=== PATIENT | female | born 1975 ===

== ENCOUNTER 2017-02-09 16:56 | Inpatient (IN) | payer OTHER ==
[2017-02-09 18:46] LABS: BASO # 0.1 K/uL (0.0-0.2); BASO % 0.7 % (0.0-2.0); EOS % 0.4 % (0.0-4.0); HEMATOCRIT 17.7 % (34.0-47.0); LYMPH # 1.9 K/uL (1.0-4.3); LYMPH % 16.9 % (20.0-40.0); MEAN CELL VOLUME 60.3 fl (81.0-99.0); MEAN CORPUSCULAR HEMOGLOBIN 17.4 pg (27.0-31.0); MEAN CORPUSCULAR HGB CONC 28.8 g/dL (33.0-37.0); MEAN PLATELET VOLUME 8.6 fl (7.2-11.7); MONO # 0.6 K/uL (0.0-0.8); MONO % 5.4 % (0.0-10.0); NEUT # 8.4 K/uL (1.8-7.0); NEUT % 76.6 % (50.0-75.0); NRBC % 0.1 % (0.0-0.0); RED CELL DISTRIBUTION WIDTH 19.8 % (11.5-14.5)
--- NOTE | 2017-02-09 18:57 | ED PDOC ---
HPI: Female Pain Time Seen by Provider: 02/09/17 17:15 Chief Complaint (Nursing): Female Genitourinary Chief Complaint (Provider): Vaginal Bleeding History Per: Patient History/Exam Limitations: no limitations Current Symptoms Are (Timing): Still Present Additional Complaint(s): Ayleen Dover, a 41 year old female, presents to the ED for vaginal bleeding. The patient states she has been on her menses for 5 days using 5 pads per day. She also complains of feeling lightheaded. Denies abdominal pain. Past Medical History Reviewed: Historical Data, Nursing Documentation, Vital Signs Vital Signs: Last Vital Signs Temp 98.3 F 02/09/17 17:10 Pulse 72 02/09/17 17:10 Resp 18 02/09/17 17:10 BP 99/6 L 02/09/17 17:10 Pulse Ox 100 02/09/17 17:10 - Medical History PMH: No Chronic Diseases - Surgical History Surgical History: No Surg Hx - Family History Family History: States: Unknown Family Hx - Home Medications Home Medications: Ambulatory Orders Medication Instructions Recorded Ferrous Sulfate [Feosol] 325 mg PO TID #90 tab 02/10/17 - Allergies Allergies/Adverse Reactions: Allergies Allergy/AdvReac Type Severity Reaction Status Date / Time No Known Allergies Allergy Verified 02/09/17 17:09 Review of Systems Cardiovascular: Positive for: Light Headedness Gastrointestinal: Negative for: Abdominal Pain Genitourinary Female: Positive for: Vaginal Bleeding Physical Exam - Reviewed Nursing Documentation Reviewed: Yes Vital Signs Reviewed: Yes - Physical Exam Appears: Positive for: Non-toxic, No Acute Distress Head Exam: Positive for: ATRAUMATIC, NORMAL INSPECTION, NORMOCEPHALIC Skin: Positive for: Pallor Eye Exam: Positive for: Normal appearance, EOMI, PERRL ENT: Positive for: Normal ENT Inspection Neck: Positive for: Normal, Painless ROM, Supple Cardiovascular/Chest: Positive for: Regular Rate, Rhythm, Chest Non Tender. Negative for: Tachycardia Respiratory: Positive for: Normal Breath Sounds. Negative for: Wheezing, Respiratory Distress Gastrointestinal/Abdominal: Positive for: Normal Exam, Soft. Negative for: Tenderness, Guarding, Rebound Back: Positive for: Normal Inspection Extremity: Positive for: Normal ROM. Negative for: Deformity, Swelling Neurologic/Psych: Positive for: Alert, Oriented, Gait - Laboratory Results Result Diagrams: 02/10/17 07:00 02/10/17 07:00 - ECG O2 Sat by Pulse Oximetry: 100 (RA) Pulse Ox Interpretation: Normal Medical Decision Making Medical Decision Makin Initial Impression: 41 year old female presenting with vaginal bleeding Differentials: Anemia, Irregular vaginal bleeding Initial Plan: * ABO/RH Type * Type and Screen * Comp Metabolic Panel * Upreg * Udip * CBC * PTT * Prothrombin Time * Urinalysis * US Pelvis/Transvaginal * Reevaluation 1855 Pelvic exam performed and revealed small amounts of blood in the vault. Interactive Media Director Ashok. Spoke to Dr. Edmondson notified of consult. Scribe Attestation Documented by Gianna Costa acting as a scribe for Lacey Royal MD. Provider Attestation All medical record entries made by the Scribe were at my direction and personally dictated by me. I have reviewed the chart and agree that the record accurately reflects my personal performance of the history, physical exam, medical decision making, and the department course for this patient. I have also personally directed, reviewed, and agree with the discharge instructions and disposition. Disposition - Clinical Impression Clinical Impression: Symptomatic anemia, Menorrhagia - Patient ED Disposition Is Patient to be Admitted: Yes - Disposition Disposition Time: 19:00 Condition: STABLE - Pt Status Changed To: Hospital Disposition Of: Observation - POA Present On Arrival: None
[2017-02-09 18:58] LABS: ALB/GLOB RATIO 1.3 (1.0-2.1); ALKALINE PHOSPHATASE 72 U/L (38-126); ALT/SGPT 35 U/L (9-52); AST/SGOT 18 U/L (14-36); BILIRUBIN,TOTAL 0.3 mg/dl (0.2-1.3); BLOOD UREA NITROGEN 15 mg/dl (7-17); CALCIUM 8.5 mg/dL (8.4-10.2); CARBON DIOXIDE 20 mmol/L (22-30); CHLORIDE 110 mmol/L (98-107); GFR AFRICAN-AMERICAN > 60; GLUCOSE,RANDOM 93 mg/dL (65-105); POTASSIUM 3.7 MMOL/L (3.6-5.0); SODIUM 139 mmol/l (132-148); TOTAL PROTEIN 6.6 G/DL (6.3-8.2)
[2017-02-09 19:13] LABS: RBC URINE 3069 /hpf (0-3); URINE BACTERIA RARE (<OCC); URINE BILIRUBIN NEGATIVE (NEGATIVE); URINE BLOOD LARGE (NEGATIVE); URINE COLOR YELLOW (YELLOW); URINE GLUCOSE (UA) NEG (Normal); URINE KETONE NEGATIVE (NEGATIVE); URINE LEUKOCYTE ESTERASE MOD Leu/uL (Negative); URINE PROTEIN 100 mg/dL (NEGATIVE); URINE UROBILINOGEN 0.2-1.0 mg/dL (0.2-1.0); WBC URINE 75 /hpf (0-5)
[2017-02-09 19:16] LABS: PARTIAL THROMBOPLASTIN TIME 25.7 Seconds (25.6-37.1)
--- NOTE | 2017-02-09 19:28 | CP.PCM.HP ---
History of Present Illness - History of Present Illness History of Present Illness: 41 yo female with no significant PMH came in because of excessive menstrual bleeding. She claimed she started to have profused menstrual bleeding since she had tubal ligation in [place] 5 yrs ago. Associated complaint were lightheadedness, headache and nausea. Denied abdominal pain, fever, chills or dysuria. Present on Admission - Present on Admission Any Indicators Present on Admission: No History of DVT/PE: No History of Uncontrolled Diabetes: No Urinary Catheter: No Decubitus Ulcer Present: No Review of Systems - Review of Systems All systems: reviewed and no additional remarkable complaints except (aside from those mentioned above, 12 point system review were negative by me) Past Patient History - Tetanus Immunizations Tetanus Immunization: Unknown - Past Medical History & Family History Past Medical History?: No Past Family History: Reviewed and not pertinent - Past Social History Smoking Status: Never Smoked Alcohol: None Drugs: Denies - CARDIAC Hx Cardiac Disorders: No - PULMONARY Hx Respiratory Disorders: No - NEUROLOGICAL Hx Neurological Disorder: No - HEENT Hx HEENT Problems: No - RENAL Hx Chronic Kidney Disease: No - ENDOCRINE/METABOLIC Hx Endocrine Disorders: No - HEMATOLOGICAL/ONCOLOGICAL Hx Blood Disorders: No - INTEGUMENTARY Hx Dermatological Problems: No - MUSCULOSKELETAL/RHEUMATOLOGICAL Hx Musculoskeletal Disorders: No - GASTROINTESTINAL Hx Gastrointestinal Disorders: No - GENITOURINARY/GYNECOLOGICAL Hx Genitourinary Disorders: No - PSYCHIATRIC Hx Psychophysiologic Disorder: No Hx Substance Use: No - SURGICAL HISTORY Hx Section: Yes (3) - ANESTHESIA Hx Anesthesia: Yes Hx Anesthesia Reactions: No Meds Allergies/Adverse Reactions: Allergies Allergy/AdvReac Type Severity Reaction Status Date / Time No Known Allergies Allergy Verified 02/09/17 17:09 Physical Exam - Constitutional Appears: No Acute Distress - Head Exam Head Exam: ATRAUMATIC - Eye Exam Eye Exam: absent: Conjunctival injection - ENT Exam ENT Exam: Mucous Membranes Moist - Neck Exam Neck exam: Negative for: Meningismus - Respiratory Exam Respiratory Exam: absent: Rhonchi, Wheezes, Respiratory Distress - Cardiovascular Exam Cardiovascular Exam: REGULAR RHYTHM, +S1, +S2 - GI/Abdominal Exam GI & Abdominal Exam: Soft. absent: Tenderness - Rectal Exam Rectal Exam: Deferred - Extremities Exam Extremities exam: Negative for: pedal edema - Back Exam Back exam: NORMAL INSPECTION - Neurological Exam Neurological exam: Alert, Oriented x3 - Psychiatric Exam Psychiatric exam: Normal Affect - Skin Skin Exam: Dry, Intact Results - Vital Signs Recent Vital Signs: Last Vital Signs Temp 98.3 F 02/09/17 17:10 Pulse 72 02/09/17 17:10 Resp 18 02/09/17 17:10 BP 99/6 L 02/09/17 17:10 Pulse Ox 100 02/09/17 19:03 - Labs Result Diagrams: 02/09/17 18:38 02/09/17 18:38 Assessment & Plan (1) Severe anemia Status: Acute Comment: admit to telemetry. transfuse 2 units of PRBC. repeat CBC in am. FeSO4 325mg PO BID (2) Menorrhagia Status: Acute Comment: Gyne consult
[2017-02-10 08:18] LABS: BASO % 0.4 % (0.0-2.0); EOS # 0.1 K/uL (0.0-0.7); EOS % 0.7 % (0.0-4.0); LYMPH # 1.6 K/uL (1.0-4.3); LYMPH % 20.9 % (20.0-40.0); MEAN CORPUSCULAR HEMOGLOBIN 21.5 pg (27.0-31.0); MEAN CORPUSCULAR HGB CONC 31.6 g/dL (33.0-37.0); MEAN PLATELET VOLUME 8.8 fl (7.2-11.7); MONO # 0.5 K/uL (0.0-0.8); NEUT # 5.4 K/uL (1.8-7.0); NRBC % 0.1 % (0.0-0.0); RED CELL DISTRIBUTION WIDTH 26.9 % (11.5-14.5); WHITE BLOOD COUNT 7.7 K/uL (4.8-10.8)
[2017-02-10] MEDS ORDERED: Chlorhexidine Gluconate 1 APPL/PKT TP ONE (08:19)
[2017-02-10 08:23] VITALS: O2SAT 100
[2017-02-10 08:25] LABS: BLOOD UREA NITROGEN 10 mg/dl (7-17); CALCIUM 7.9 mg/dL (8.4-10.2); CARBON DIOXIDE 23 mmol/L (22-30); CHLORIDE 111 mmol/L (98-107); GFR AFRICAN-AMERICAN > 60; GLUCOSE,RANDOM 96 mg/dL (65-105); POTASSIUM 3.9 MMOL/L (3.6-5.0); SODIUM 140 mmol/l (132-148)
--- NOTE | 2017-02-10 08:26 | CP.PCM.CON ---
History of Present Illness - History of Present Illness History of Present Illness: [id number] LMP 5d ago. admiited for heavy VB and symptomatic anemia. She normally has 6d of menses heavy since 6 years ago after sterilization srugery. She came to [facility] 2y ago and has not seen HABILITATIVE INTERVENTIONIST. The past 5 days she had heavy VB and found to have Hb 5...given PRBC since yesterday Review of Systems - Constitutional Additional comments: Currently not as weak as yesterday - Cardiovascular Cardiovascular: absent: Chest Pain, Palpitations - Gastrointestinal Gastrointestinal: absent: Abdominal Pain - Reproductive: Female Reproductive:Female: Heavy Menses Additional comments: menarche 14 - menses each month; no check up with HABILITATIVE INTERVENTIONIST in years Past Patient History - Tetanus Immunizations Tetanus Immunization: Unknown - Past Medical History & Family History Past Medical History?: No - Past Social History Smoking Status: Never Smoked Chewing Tobacco Use: No Cigar Use: No - CARDIAC Hx Cardiac Disorders: No - PULMONARY Hx Respiratory Disorders: No - NEUROLOGICAL Hx Neurological Disorder: Yes Hx Dizziness: Yes - HEENT Hx HEENT Problems: No - RENAL Hx Chronic Kidney Disease: No - ENDOCRINE/METABOLIC Hx Endocrine Disorders: No - HEMATOLOGICAL/ONCOLOGICAL Hx Blood Disorders: No Hx AIDS: No Hx Human Immunodeficiency Virus (HIV): No - INTEGUMENTARY Hx Dermatological Problems: No - MUSCULOSKELETAL/RHEUMATOLOGICAL Hx Musculoskeletal Disorders: No Hx Falls: No - GASTROINTESTINAL Hx Gastrointestinal Disorders: No - GENITOURINARY/GYNECOLOGICAL Hx Genitourinary Disorders: No - PSYCHIATRIC Hx Psychophysiologic Disorder: No Hx Substance Use: No - SURGICAL HISTORY Hx Surgeries: Yes (C/S x3 and BTL 6y ago) Hx Section: Yes (3) - ANESTHESIA Hx Anesthesia: Yes Hx Anesthesia Reactions: No Meds Allergies/Adverse Reactions: Allergies Allergy/AdvReac Type Severity Reaction Status Date / Time No Known Allergies Allergy Verified 02/09/17 17:09 - Medications Medications: Current Medications Pantoprazole Sodium (Protonix Ec Tab) 40 mg PO DAILY VONNIE Physical Exam - Constitutional Appears: Non-toxic - Head Exam Head Exam: NORMAL INSPECTION - Respiratory Exam Respiratory Exam: NORMAL BREATHING PATTERN - Cardiovascular Exam Cardiovascular Exam: REGULAR RHYTHM - GI/Abdominal Exam GI & Abdominal Exam: Normal Bowel Sounds, Soft Additional comments: Vertical skin incision - Exam External exam: NORMAL EXTERNAL EXAM Speculum exam: NORMAL SPECULUM EXAM Bimanual exam: NORMAL BIMANUAL EXAM Additional comments: some clotted blood noted; not active Results - Vital Signs Recent Vital Signs: Last Vital Signs Temp 98.4 F 02/10/17 08:00 Pulse 56 L 02/10/17 08:00 Resp 20 02/10/17 08:00 BP 118/71 02/10/17 08:00 Pulse Ox 100 02/10/17 08:00 - Labs Result Diagrams: 02/09/17 18:38 02/09/17 18:38 Labs: Laboratory Results - last 24 hr 02/09/17 19:51 Blood Type Confirm O POSITIVE - Impressions Impression: Pelvic sonogram results pending...no preg test done Assessment & Plan - Assessment and Plan (Free Text) Assessment: Symptomatic anemia - secondary to menorrhagia Plan: Check Urine preg test, continue medical management (transfuse if still aenic/ symptomatic) consider estrogen IV if continued active VB will need endometrial biopsy as out patient - schedule at [facility] or refer to [facility] office referr for mammogram for annual screen - Date & Time Date: 02/10/17 Time: 08:00
[2017-02-10] MEDS ORDERED: Pantoprazole 40 mg EC Tab PO SCH (09:00)
--- NOTE | 2017-02-10 10:12 | US ---
PROCEDURE: HISTORY: Vag bleeding, suprapubic pain COMPARISON: TECHNIQUE: FINDINGS: The uterus measures 10.1 x 7.2 x 6.0 centimeters. 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 There is fluid within the endometrium. The right ovary measures 2.0 x 12.0 centimeters. Left ovary measures 3.6 x 3.7 centimeters with a 2.4 centimeter left ovarian simple cyst. There is no fluid the pelvis. 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 2.4 centimeter left ovarian cyst.
--- NOTE | 2017-02-10 13:12 | CARD ---
APPROVED REPORT EKG Measurement Heart [id number] CT [id number] [id number] <Conclusion> Sinus bradycardia Otherwise normal ECG
[2017-02-10 15:43] VITALS: BP 108/68; PULSE 59; RESP 20; TEMP 98.1
--- NOTE | 2017-02-10 16:04 | CP.PCM.DIS ---
Provider - Provider Date of Admission: 02/09/17 19:07 Attending physician: Brian David MD Consults: Dr Edmondson Time Spent in preparation of Discharge (in minutes): 35 Diagnosis - Discharge Diagnosis (1) Severe anemia Status: Acute Comment: Hgb went up to 7.3 after receiving 2 units of PRBC (2) Menorrhagia Status: Acute Comment: follow up in [facility] within 2 weeks Hospital Course - Lab Results Lab Results: Most Recent Lab Values WBC 7.7 K/uL (4.8-10.8) 02/10/17 07:00 RBC 3.38 Mil/uL (3.80-5.20) L 02/10/17 07:00 Hgb 7.3 g/dL (12.0-16.0) L D 02/10/17 07:00 Hct 23.0 % (34.0-47.0) L 02/10/17 07:00 MCV 68.0 fl (81.0-99.0) L D 02/10/17 07:00 MCH 21.5 pg (27.0-31.0) L 02/10/17 07:00 MCHC 31.6 g/dL (33.0-37.0) L 02/10/17 07:00 RDW 26.9 % (11.5-14.5) H 02/10/17 07:00 Plt Count 205 K/uL (130-400) 02/10/17 07:00 MPV 8.8 fl (7.2-11.7) 02/10/17 07:00 Neut % (Auto) 71.0 % (50.0-75.0) 02/10/17 07:00 Lymph % (Auto) 20.9 % (20.0-40.0) 02/10/17 07:00 Wirt % (Auto) 7.0 % (0.0-10.0) 02/10/17 07:00 Eos % (Auto) 0.7 % (0.0-4.0) 02/10/17 07:00 Baso % (Auto) 0.4 % (0.0-2.0) 02/10/17 07:00 Neut # 5.4 K/uL (1.8-7.0) 02/10/17 07:00 Lymph # 1.6 K/uL (1.0-4.3) 02/10/17 07:00 Wirt # 0.5 K/uL (0.0-0.8) 02/10/17 07:00 Eos # 0.1 K/uL (0.0-0.7) 02/10/17 07:00 Baso # 0.0 K/uL (0.0-0.2) 02/10/17 07:00 PT 12.5 Seconds (9.8-13.1) 02/09/17 18:38 INR 1.1 (0.9-1.2) 02/09/17 18:38 APTT 25.7 Seconds (25.6-37.1) 02/09/17 18:38 Sodium 140 mmol/l (132-148) 02/10/17 07:00 Potassium 3.9 MMOL/L (3.6-5.0) 02/10/17 07:00 Chloride 111 mmol/L (98-107) H 02/10/17 07:00 Carbon Dioxide 23 mmol/L (22-30) 02/10/17 07:00 Anion Gap 10 (10-20) 02/10/17 07:00 BUN 10 mg/dl (7-17) 02/10/17 07:00 Creatinine 0.6 mg/dL (0.7-1.2) L 02/10/17 07:00 Est GFR ( Amer) > 60 02/10/17 07:00 Est GFR (Non-Af Amer) > 60 02/10/17 07:00 Random Glucose 96 mg/dL (65-105) 02/10/17 07:00 Calcium 7.9 mg/dL (8.4-10.2) L 02/10/17 07:00 Total Bilirubin 0.3 mg/dl (0.2-1.3) 02/09/17 18:38 AST 18 U/L (14-36) 02/09/17 18:38 ALT 35 U/L (9-52) 02/09/17 18:38 Alkaline Phosphatase 72 U/L (38-126) 02/09/17 18:38 Total Protein 6.6 G/DL (6.3-8.2) 02/09/17 18:38 Albumin 3.8 g/dL (3.5-5.0) 02/09/17 18:38 Globulin 2.8 gm/dL (2.2-3.9) 02/09/17 18:38 Albumin/Globulin Ratio 1.3 (1.0-2.1) 02/09/17 18:38 Urine Color Yellow (YELLOW) 02/09/17 18:47 Urine Clarity Cloudy (Clear) 02/09/17 18:47 Urine pH 6.0 (5.0-8.0) 02/09/17 18:47 Ur Specific [place] 1.024 (1.003-1.030) 02/09/17 18:47 Urine Protein 100 mg/dL (NEGATIVE) 02/09/17 18:47 Urine Glucose (UA) Neg mg/dL (Normal) 02/09/17 18:47 Urine Ketones Negative mg/dL (NEGATIVE) 02/09/17 18:47 Urine Blood Large (NEGATIVE) 02/09/17 18:47 Urine Nitrate Negative (NEGATIVE) 02/09/17 18:47 Urine Bilirubin Negative (NEGATIVE) 02/09/17 18:47 Urine Urobilinogen 0.2-1.0 mg/dL (0.2-1.0) 02/09/17 18:47 Ur Leukocyte Esterase Mod [place]/uL (Negative) 02/09/17 18:47 Urine RBC (Auto) 3069 /hpf (0-3) H 02/09/17 18:47 Urine Microscopic WBC 75 /hpf (0-5) H 02/09/17 18:47 Ur Squamous Epith Cells 6 /hpf (0-5) H 02/09/17 18:47 Urine Bacteria Rare (<OCC) 02/09/17 18:47 Urine Yeast (Budding) Few /hpf (NEGATIVE) H 02/09/17 18:47 Blood Type O POSITIVE 02/09/17 18:38 Blood Type Confirm O POSITIVE 02/09/17 19:51 Antibody Screen Negative 02/09/17 18:38 Crossmatch See Detail 02/09/17 18:38 BBK History Checked No verified bt 02/09/17 18:38 - Hospital Course Hospital Course: 41 yo female with no significant PMH came in because of excessive menstrual bleeding which usually last for 3 days now has lasted for more than 5 days. Profused and prolonged menstruation began since she had tubal ligation in [place] 5 yrs ago. Patient was admitted and received 3 units of PRBC. Hgb went up to 7.3 from 5.1 even before receiving the 3rd unit. After the 3rd unit patient was discharged in stable condition. Discharge Exam - Head Exam Head Exam: NORMAL INSPECTION - Eye Exam Eye Exam: absent: Scleral icterus - ENT Exam ENT Exam: Mucous Membranes Moist - Respiratory Exam Respiratory Exam: absent: Wheezes, Respiratory Distress - Cardiovascular Exam Cardiovascular Exam: REGULAR RHYTHM, +S1, +S2 - GI/Abdominal Exam GI & Abdominal Exam: Soft. absent: Tenderness - Rectal Exam Rectal Exam: Deferred - Neurological Exam Neurological exam: Alert, Oriented x3 - Psychiatric Exam Psychiatric exam: Normal Affect - Skin Skin Exam: Dry, Intact Discharge Plan - Discharge Medications Prescriptions: Ferrous Sulfate [Feosol] 325 mg PO TID #90 tab - Follow Up Plan Condition: GOOD Disposition: HOME/ ROUTINE Additional Instructions: to follow up with [facility] within 2 weeks
== END 2017-02-10 19:00 | disposition home or self-care (01) | DRG 369 ==
LOC: EDBD → H.ER 16:56 → H.ERHOLD 19:07 → H.TEL 21:27
PROC: 30233N1 Transfusion of Nonautologous Red Blood Cells into Peripheral Vein, Percutaneous Approach (ICD-10-PCS; principal; 2017-02-09)
DX: N92.0 Excessive and frequent menstruation with regular cycle (principal); D50.0 Iron deficiency anemia secondary to blood loss (chronic); Z98.51 Tubal ligation status; R11.0 Nausea; R51 Headache; R42 Dizziness and giddiness

== ENCOUNTER 2017-04-09 09:56 | Emergency (ER) | payer SELFPAY ==
[2017-04-09 10:12] VITALS: O2SAT 98
[2017-04-09 10:18] VITALS: BP 117/72; PULSE 102; RESP 18
[2017-04-09] MEDS ORDERED: Sodium Chloride 0.9% 1,000 ML IV STA (11:07)
--- NOTE | 2017-04-09 12:24 | ED PDOC ---
HPI: General Adult Time Seen by Provider: 04/09/17 10:40 Chief Complaint (Nursing): Abdominal Pain History Per: Patient Additional Complaint(s): Pt. states for the past 3 days she's had non-radiating epigastric abdominal pain associated with multiple episodes of non-bloody vomiting and non-bloody watery diarrhea. Reports she is unable to eat or drink as she gets nauseous and vomits. Denies chest pain, fever, recent travel, sick contacts, SOB, hematemesis , melena, BRBPR, hematochezia. Past Medical History Reviewed: Historical Data, Nursing Documentation, Vital Signs Vital Signs: Last Vital Signs Temp 102.7 F H 04/09/17 13:29 Pulse 102 H 04/09/17 10:17 Resp 18 04/09/17 10:17 BP 117/72 04/09/17 10:17 Pulse Ox 98 04/09/17 12:26 - Medical History PMH: Denies: HIV, Chronic Kidney Disease - Surgical History Surgical History: No Surg Hx - Family History Family History: States: No Known Family Hx - Home Medications Home Medications: Ambulatory Orders Medication Instructions Recorded Ferrous Sulfate [Feosol] 325 mg PO TID #90 tab 02/10/17 Dicyclomine [Bentyl] 20 mg PO Q8 PRN #30 tab 04/09/17 Famotidine [Pepcid] 20 mg PO DAILY PRN #30 tab 04/09/17 Ondansetron ODT [Zofran ODT] 4 mg PO TID #21 odt 04/09/17 - Allergies Allergies/Adverse Reactions: Allergies Allergy/AdvReac Type Severity Reaction Status Date / Time No Known Allergies Allergy Verified 02/09/17 17:09 Review of Systems ROS Statement: Except As Marked, All Systems Reviewed And Found Negative Gastrointestinal: Positive for: Nausea, Vomiting, Abdominal Pain, Diarrhea Physical Exam - Reviewed Nursing Documentation Reviewed: Yes Vital Signs Reviewed: Yes - Physical Exam Appears: Positive for: Well, Non-toxic, No Acute Distress Head Exam: Positive for: ATRAUMATIC, NORMAL INSPECTION, NORMOCEPHALIC Skin: Positive for: Normal Color, Warm. Negative for: Rash Eye Exam: Positive for: EOMI, Normal appearance, PERRL ENT: Positive for: Normal ENT Inspection Neck: Positive for: Normal, Painless ROM Cardiovascular/Chest: Positive for: Regular Rate, Rhythm Respiratory: Positive for: CNT, Normal Breath Sounds Gastrointestinal/Abdominal: Positive for: Normal Exam, Bowel Sounds, Soft, Tenderness (epigastric and RUQ tenderness). Negative for: Organomegaly, Mass, Guarding, Rebound Back: Positive for: Normal Inspection. Negative for: L CVA Tenderness, R CVA Tenderness Extremity: Positive for: Normal ROM Neurologic/Psych: Positive for: Alert, Oriented - Laboratory Results Result Diagrams: 04/09/17 13:20 04/09/17 13:20 - ECG O2 Sat by Pulse Oximetry: 98 - Progress ED Course And Treament: Labs ordered. Abd US. Pepcid 20mg IV, reglan 10mg IV, IV NS bolus ordered. ED OBSERVATION Discharge: Yes Date of observation admission: 04/09/17 Time of observation admission: 11:07 - Observation admission statement Patient is being placed in observation because:: abd pain, fever, N/V/D - Progress Note Progress Note: 04/09/17 13:18 Pt. in no distress. Pending US. 04/09/17 14:19 Abd US: 1. Borderline bilateral hydronephrosis from an indeterminate etiology. Clinically correlate further. No urolithiasis identified bilaterally. Two small right renal cysts are identified. 2. Distended but otherwise unremarkable gallbladder. 3. Partial imaging of the pancreas. On re-evaluation, pt. reports good pain relief. States she is feeling much better. Tolerating PO fluids in ED. Case d/w Dr. Royal who agrees with care and disposition. Disposition - Clinical Impression Clinical Impression: Fever, Gastroenteritis - Patient ED Disposition Is Patient to be Admitted: No - Disposition Referrals: [facility] [Outside] [facility] [Outside] Disposition Time: 15:38 Condition: STABLE Prescriptions: Dicyclomine [Bentyl] 20 mg PO Q8 PRN #30 tab PRN Reason: abdominal pain Famotidine [Pepcid] 20 mg PO DAILY PRN #30 tab PRN Reason: Dyspepsia Ondansetron ODT [Zofran ODT] 4 mg PO TID #21 odt Instructions: Gastroenteritis (ED) Forms: [facility] (Irish) Print Language: LAO
--- NOTE | 2017-04-09 12:37 | US ---
HISTORY: epigastric abdominal pain COMPARISON: None. TECHNIQUE: Sonographic evaluation of the abdomen. FINDINGS: LIVER: Measures 16.4 cm. Normal echogenicity of the liver parenchyma. No mass. No intrahepatic bile duct dilatation. GALLBLADDER: Gallbladder appears distended but is otherwise unremarkable. COMMON BILE DUCT: Measures 4.4 mm. No stones. No dilatation. PANCREAS: The tail of the pancreas is obscured by overlying bowel gas with remainder unremarkable. RIGHT KIDNEY: Measures 11.6cm. Two small cysts identified in the midpole right kidney with 1 intrarenal and the other in the parenchyma laterally. Both measure approximately 1.5 cm greatest dimension. No urolithiasis identified. There is borderline hydronephrosis. LEFT KIDNEY: Measures 12.0cm. Normal echogenicity. There is borderline hydronephrosis slightly greater than that seen at the right side but no discrete solid parenchymal mass or cyst is evident. No urolithiasis is identified. SPLEEN: Normal in size and contour. No mass. AORTA: No aneurysmal dilatation. IVC: Unremarkable. OTHER FINDINGS: None. IMPRESSION: 1. Borderline bilateral hydronephrosis from an indeterminate etiology. Clinically correlate further. No urolithiasis identified bilaterally. Two small right renal cysts are identified. 2. Distended but otherwise unremarkable gallbladder. 3. Partial imaging of the pancreas.
[2017-04-09 13:27] LABS: VENOUS BLOOD GAS BASE EXCESS 2.3 mmol/L (0.0-2.0); VENOUS BLOOD GAS PCO2 43 mmHg (40-60); VENOUS BLOOD PH 7.41 (7.32-7.43)
[2017-04-09 13:31] VITALS: TEMP 102.7
[2017-04-09 13:36] LABS: BASO % 0.4 % (0.0-2.0); EOS % 0.1 % (0.0-4.0); HEMATOCRIT 29.8 % (34.0-47.0); LYMPH % 10.4 % (20.0-40.0); MEAN CORPUSCULAR HEMOGLOBIN 26.9 pg (27.0-31.0); MEAN CORPUSCULAR HGB CONC 33.2 g/dL (33.0-37.0); MEAN PLATELET VOLUME 8.1 fl (7.2-11.7); MONO % 10.1 % (0.0-10.0); NEUT # 7.9 K/uL (1.8-7.0); RED CELL DISTRIBUTION WIDTH 23.5 % (11.5-14.5)
[2017-04-09 14:06] LABS: ALB/GLOB RATIO 1.3 (1.0-2.1); ALKALINE PHOSPHATASE 73 U/L (38-126); ALT/SGPT 51 U/L (9-52); AST/SGOT 45 U/L (14-36); BILIRUBIN,TOTAL 0.7 mg/dl (0.2-1.3); BLOOD UREA NITROGEN 6 mg/dl (7-17); CALCIUM 8.3 mg/dL (8.4-10.2); CARBON DIOXIDE 20 mmol/L (22-30); CHLORIDE 105 mmol/L (98-107); GFR AFRICAN-AMERICAN > 60; GLUCOSE,RANDOM 95 mg/dL (65-105); LIPASE 41 U/L (23-300); SODIUM 141 mmol/l (132-148); TOTAL PROTEIN 6.9 G/DL (6.3-8.2)
[2017-04-09 14:08] LABS: POTASSIUM 3.5 MMOL/L (3.6-5.0)
--- NOTE | 2017-04-10 10:54 | CARD ---
APPROVED REPORT EKG Measurement Heart [id number] 120P37 [id number] <Conclusion> Normal sinus rhythm Nonspecific ST abnormality Abnormal ECG
== END 2017-04-09 15:38 | disposition home or self-care (01) ==
LOC: H.ER 09:56
DX: K52.9 Noninfective gastroenteritis and colitis, unspecified (principal); R50.9 Fever, unspecified; N28.1 Cyst of kidney, acquired
CPT/HCPCS: 76700; 80053; 81025; 82803; 83690; 85025; 87040; 93005; 96374; 96375; 99282; J2765; J7040

== ENCOUNTER 2018-08-30 13:39 | Emergency (ER) | payer SELFPAY ==
[2018-08-30 14:16] VITALS: O2SAT 100
[2018-08-30 16:24] LABS: BASO % 0.5 % (0.0-2.0); EOS # 0.1 K/uL (0.0-0.7); EOS % 1.3 % (0.0-4.0); LYMPH # 1.3 K/uL (1.0-4.3); LYMPH % 18.6 % (20.0-40.0); MEAN CELL VOLUME 81.1 fl (81.0-99.0); MEAN CORPUSCULAR HEMOGLOBIN 25.8 pg (27.0-31.0); MEAN CORPUSCULAR HGB CONC 31.9 g/dL (33.0-37.0); MEAN PLATELET VOLUME 8.2 fl (7.2-11.7); MONO # 0.4 K/uL (0.0-0.8); NEUT # 5.3 K/uL (1.8-7.0); NEUT % 73.6 % (50.0-75.0); NRBC % 0.1 % (0.0-0.0); RBC 3.3 Mil/uL (3.80-5.20); RED CELL DISTRIBUTION WIDTH 17.8 % (11.5-14.5); WHITE BLOOD COUNT 7.1 K/uL (4.8-10.8)
[2018-08-30 16:26] LABS: HEMOGLOBIN 8.5 g/dL (12.0-16.0)
[2018-08-30 16:30] LABS: ALB/GLOB RATIO 1.3 (1.0-2.1); ALBUMIN 3.9 g/dL (3.5-5.0); ALT/SGPT 27 U/L (9-52); AST/SGOT 26 U/L (14-36); BLOOD UREA NITROGEN 12 mg/dl (7-17); CALCIUM 8.8 mg/dL (8.4-10.2); GFR NON-AFRICAN AMERICAN > 60
[2018-08-30 16:54] LABS: SQUAMOUS EPITHIAL 1 /hpf (0-5); URINE BACTERIA OCC (<OCC); URINE BILIRUBIN NEGATIVE (NEGATIVE); URINE BLOOD LARGE (NEGATIVE); URINE CLARITY TURBID (Clear); URINE COLOR RED (YELLOW); URINE GLUCOSE (UA) NEG (NEGATIVE); URINE LEUKOCYTE ESTERASE NEG Leu/uL (Negative); URINE PROTEIN >=500 mg/dL (NEGATIVE); URINE UROBILINOGEN 0.2-1.0 mg/dL (0.2-1.0)
[2018-08-30] MEDS ORDERED: Sodium Chloride 0.9% 1,000 ML IV ONE (17:17)
--- NOTE | 2018-08-30 18:59 | ED PDOC ---
HPI: Female Pain Time Seen by Provider: 08/30/18 15:04 Chief Complaint (Nursing): Female Genitourinary Chief Complaint (Provider): Vaginal Bleeding History Per: Patient, Family Past Medical History Vital Signs: Last Vital Signs Temp 99.1 F 08/30/18 14:12 Pulse 91 H 08/30/18 14:12 Resp 16 08/30/18 14:12 BP 121/86 08/30/18 14:12 Pulse Ox 100 08/30/18 14:12 - Medical History PMH: Denies: HIV, Chronic Kidney Disease - Family History Family History: States: Unknown Family Hx - Home Medications Home Medications: Ambulatory Orders Medication Instructions Recorded Ferrous Sulfate [Feosol] 325 mg PO TID #90 tab 02/10/17 Dicyclomine [Bentyl] 20 mg PO Q8 PRN #30 tab 04/09/17 Famotidine [Pepcid] 20 mg PO DAILY PRN #30 tab 04/09/17 Ondansetron ODT [Zofran ODT] 4 mg PO TID #21 odt 04/09/17 Ethinyl Estradiol/Drospirenone 1 each PO ASDIR #28 tablet 08/30/18 [Deb 28 Tablet] Iron 1 tab PO DAILY #30 tablet 08/30/18 - Allergies Allergies/Adverse Reactions: Allergies Allergy/AdvReac Type Severity Reaction Status Date / Time No Known Allergies Allergy Verified 08/30/18 14:12 - Laboratory Results Result Diagrams: 08/30/18 16:14 08/30/18 16:14 Lab Results: Total Bilirubin 0.1 mg/dl (0.2-1.3) L 08/30/18 16:14 AST 26 U/L (14-36) 08/30/18 16:14 ALT 27 U/L (9-52) 08/30/18 16:14 Alkaline Phosphatase 68 U/L (38-126) 08/30/18 16:14 Total Protein 7.0 G/DL (6.3-8.2) 08/30/18 16:14 Albumin 3.9 g/dL (3.5-5.0) 08/30/18 16:14 Globulin 3.1 gm/dL (2.2-3.9) 08/30/18 16:14 Albumin/Globulin Ratio 1.3 (1.0-2.1) 08/30/18 16:14 Urine Color Red (YELLOW) 08/30/18 16:25 Urine Clarity Turbid (Clear) 08/30/18 16:25 Urine pH 5.0 (5.0-8.0) 08/30/18 16:25 Ur Specific Alpha 1.031 (1.003-1.030) H 08/30/18 16:25 Urine Protein >=500 mg/dL (NEGATIVE) 08/30/18 16:25 Urine Glucose (UA) Neg mg/dL (NEGATIVE) 08/30/18 16:25 Urine Ketones Negative mg/dL (NEGATIVE) 08/30/18 16:25 Urine Blood Large (NEGATIVE) 08/30/18 16:25 Urine Nitrate Negative (NEGATIVE) 08/30/18 16:25 Urine Bilirubin Negative (NEGATIVE) 08/30/18 16:25 Urine Urobilinogen 0.2-1.0 mg/dL (0.2-1.0) 08/30/18 16:25 Ur Leukocyte Esterase Neg Lawrence/uL (Negative) 08/30/18 16:25 Urine RBC (Auto) 1348 /hpf (0-3) H 08/30/18 16:25 Urine Microscopic WBC 80 /hpf (0-5) H 08/30/18 16:25 Ur Squamous Epith Cells 1 /hpf (0-5) 08/30/18 16:25 Urine Bacteria Occ (<OCC) H 08/30/18 16:25 Urine Yeast (Budding) Few /hpf (NEGATIVE) H 08/30/18 16:25 - ECG O2 Sat by Pulse Oximetry: 100 Disposition - Clinical Impression Clinical Impression: Vaginal bleeding, Hemoglobin decreased, Fibroid, uterine - Patient ED Disposition Is Patient to be Admitted: No Discussed With : Igor Rodríguez Comment: Pt should follow up in the clinic on Saturday or Saturday; will be given an iron supplement and DEB on a titrated basis Doctor Will See Patient In The: Office Counseled Patient/Family Regarding: Diagnosis, Need For Followup, Rx Given - Disposition [facility] [Outside] Disposition: Routine/Home Disposition Time: 19:00 Condition: STABLE Prescriptions: Ethinyl Estradiol/Drospirenone [Deb 28 Tablet] 1 each PO ASDIR #28 tablet Iron 1 tab PO DAILY #30 tablet Instructions: Heavy Periods (DC), Heavy Periods, Uterine Fibroids, Uterine Fibroids (DC)
[2018-08-30 19:47] VITALS: BP 111/69; PULSE 66; RESP 18; TEMP 98.2
--- NOTE | 2018-08-31 09:29 | US ---
Date of service: 08/30/2018 PROCEDURE: HISTORY: vaginal bleed COMPARISON: TECHNIQUE: FINDINGS: The uterus measures 8.9 x 6.4 x 9.4 centimeters. The endometrium is obscured by large central mass compatible with a myoma measuring 5.2 centimeters. There is trace fluid noted in the lower uterine segment cavity. The right ovary is identified. The left ovary is unremarkable. IMPRESSION: As above.
== END 2018-08-30 19:43 | disposition home or self-care (01) ==
LOC: H.ER 13:39
DX: N93.9 Abnormal uterine and vaginal bleeding, unspecified (principal); D25.9 Leiomyoma of uterus, unspecified; R71.0 Precipitous drop in hematocrit
CPT/HCPCS: 76830; 80053; 81003; 81025; 85025; 99285; J7030